=== PATIENT | female | born 1995 | race African-American/Black ===

== ENCOUNTER 2018-04-11 19:35 | Inpatient (IN) ==
[~2018-04-11 19:35] MED LIST: Diphtheria/Tetanus/Pertussis Vaccine Inj 0.5 ML Syringe IM ONE; Measles/Mumps/Rubella Vaccine Inj 0.5 ML Vial SQ ONE
[2018-04-11] MEDS ORDERED: Sod Chloride 0.9% Inj 1,000 ML IV.CONT PRN (19:50)
[2018-04-11] MEDS ORDERED: Sodium Chlor 0.9% Inj 500 ML IV.SIG PRN (19:50)
[2018-04-11] MEDS ORDERED: fentaNYL Citrate Inj 100 MCG/2 ML Ampul IV.PUSH PRN ×2 (19:50)
[2018-04-11] MEDS ORDERED: Naloxone Inj 0.4 MG/ML Vial IV.PUSH PRN ×2 (19:50→20:53)
[2018-04-11] MEDS ORDERED: Oxytocin 30 Units/500ml Premix 30 UNITS/500 ML BAG IV.SIG ONE (19:50)
[2018-04-11] MEDS ORDERED: Citric Acid/Sodium Citrate Liq 30 ML UDC PO SCH (20:00)
[2018-04-11] MEDS ORDERED: Oxytocin 30 Units/500ml Premix 30 UNITS/500 ML BAG ONE (20:07)
--- NOTE | 2018-04-11 20:46 | P.HPOB ---
History of Present Illness Primary Care Physician: NOT REQUIRED Chief Complaint: labor History of Present Illness: 22 yo presented to the ED for evaluation of labor. Contractions started at 6PM 04/11/18. Patient is from [place], [place] and moved to [place] 1 month ago. She did not have care here. She reports that she did have care in [place]. Her due date was April 26. She denies any medical problems. She takes no medications at home. No problems with past pregnancies or current . PSH: No surgeries Social: Denies tobacco use, alcohol use, drug use Weeks Gestation:: 37 Para: 2 : 3 Total # of Miscarriage(s): 0 Total # of Abortions (Spontaneous & Elective): 0 - Inpatient Certification I certify that the inpatient services were ordered in accordance with Medicare regulations governing the order. This includes certification that hospital inpatient services are reasonable and necessary and in the case of services not specified as inpatient-only under 42 CFR 419.22(n), that they are appropriately provided as inpatient services in accordance to with the 2-midnight benchmark under 43 CFR 412.3(e) Estimated Total Length of Stay (Days): 3 Plans for Post Hospital Care: Home Review of Systems All other systems reviewed negative except as stated in HPI PMFSH - Tobacco History Smoking Status: Never smoker Medications and Allergies Allergies Allergy/AdvReac Type Severity Reaction Status Date / Time No Known Allergies Allergy Unverified 03/16/18 12:29 Exam Vital signs: Vital Signs 04/11/18 19:50 04/11/18 19:55 04/11/18 20:01 Pulse Rate 99 H 96 H 89 Respiratory Rate 20 Blood Pressure 114/90 04/11/18 20:05 04/11/18 20:15 Pulse Rate 100 H 88 Respiratory Rate Blood Pressure Intake & Output 04/11/18 04/11/18 04/12/18 06:59 18:59 06:59 Weight 61.689 kg Narrative: GENERAL: Well-nourished, well-developed patient. SKIN: Warm and dry. HEAD: Normocephalic and atraumatic. EYES: No scleral icterus. No injection or drainage. ENT: No nasal drainage noted. Mucous membranes pink. Airway patent. NECK: Supple, trachea midline. No JVD. CARDIOVASCULAR: Regular rate and rhythm without murmurs, gallops, or rubs. RESPIRATORY: Breath sounds equal bilaterally. No accessory muscle use. BREASTS: Bilateral exam showed no masses , no retractions, no nipple discharge. ABDOMEN/GI: Abdomen soft, non-tender, bowel sounds present, no rebound, no guarding Gravid to 37 weeks size GENITOURINARY: External Genitalia: intact and normal in appearance Cervix: midline Dilatation: 7 Effacement: 80 Station: -1 Presentation: vertex Membranes: intact Uterine Contractions: Q3min FHT's: Category: 1 Baseline: 130s Reactive: yes Variability: moderate Decels: none EXTREMITIES: No cyanosis or edema. BACK: Nontender without obvious deformity. No CVA tenderness. NEUROLOGICAL: Awake and alert. Motor and sensory grossly within normal limits. Five out of 5 muscle strength in all muscle groups. Normal speech. Results - Labs CBC & Chem 7: 04/11/18 19:50 Caprini VTE Risk Assessment Caprini VTE Risk Assessment: Moderate/High Risk (score >= 2) Caprini Risk Assessment Model: Point Value = 1 Point Value = 2 Point Value = 3 Point Value = 5 Age 41-60 Minor surgery BMI > 25 kg/m2 Swollen legs Varicose veins or History of unexplained or recurrent spontaneous Oral contraceptives or hormone replacement Sepsis (< 1 month) Serious lung disease, including pneumonia (< 1 month) Abnormal pulmonary function Acute myocardial infarction Congestive heart failure (< 1 month) History of inflammatory bowel disease Medical patient at bed rest Age 61-74 Arthroscopic surgery Major open surgery (> 45 min) Laparoscopic surgery (> 45 min) Malignancy Confined to bed (> 72 hours) Immobilizing plaster cast Central venous access Age >= 75 History of VTE Family history of VTE Factor V Leiden Prothrombin 10200A Lupus anticoagulant Anticardiolipin antibodies Elevated serum homocysteine Heparin-induced thrombocytopenia Other congenital or acquired thrombophilia Stroke (< 1 month) Elective arthroplasty Hip, pelvis, or leg fracture Acute spinal cord injury (< 1 month) Prophylaxis Regimen: Total Risk Factor Score Risk Level Prophylaxis Regimen 0-1 Low Early ambulation 2 Moderate Order ONE of the following: *Sequential Compression Device (SCD) *Heparin 5000 units SQ BID 3-4 Higher Order ONE of the following medications: *Heparin 5000 units SQ TID *Enoxaparin/Lovenox 40 mg SQ daily (WT < 150 kg, CrCl > 30 mL/min) *Enoxaparin/Lovenox 30 mg SQ daily (WT < 150 kg, CrCl > 10-29 mL/min) *Enoxaparin/Lovenox 30 mg SQ BID (WT < 150 kg, CrCl > 30 mL/min) AND/OR *Sequential Compression Device (SCD) 5 or more Highest Order ONE of the following medications: *Heparin 5000 units SQ TID (Preferred with Epidurals) *Enoxaparin/Lovenox 40 mg SQ daily (WT < 150 kg, CrCl > 30 mL/min) *Enoxaparin/Lovenox 30 mg SQ daily (WT < 150 kg, CrCl > 10-29 mL/min) *Enoxaparin/Lovenox 30 mg SQ BID (WT < 150 kg, CrCl > 30 mL/min) AND *Sequential Compression Device (SCD) Assessment and Plan - Attending Attestation The exam, history, and the medical decision-making described in the above note were completed with the assistance of the resident physician. I reviewed and agree with the findings presented. I attest that I had a [id number] encounter with the patient on the same day, and personally performed and documented my assessment and findings in the medical record.
[2018-04-11] MEDS ORDERED: Benzocaine 20% Top Spray 60 ML Can TOPICAL PRN (20:53)
[2018-04-11] MEDS ORDERED: Witch Hazel 50%/Glyderin 12.5% 40 Pad Jar RECTAL PRN (20:53)
[2018-04-11] MEDS ORDERED: Zolpidem Tartrate 5 MG Tablet PO PRN (20:53)
[2018-04-11] MEDS ORDERED: Bisacodyl 10 MG Supp RECTAL PRN (20:53)
--- NOTE | 2018-04-11 20:53 | P.OBDELI ---
Weeks Gestation: 37 Artificial Rupture of Membrane: Yes Artificial ROM Date: 04/11/18 Artificial ROM Time: 20:11 Anesthesia: None Episiotomy: none Vaginal Delivery: Normal Presentation: Occiput posterior Nuchal Cord: None Delayed Cord Clamping (45 sec): Yes Placenta: Spontaneous delivery Laceration: None Estimated blood loss (mL): 100 : Male Infant Infant Delivery Date: 04/11/18 Infant Delivery Time: 20:36 Weight: 2.805 kg score (1 min): 8 score (5 min): 9 Attestation Attestation: The exam, history, and the medical decision-making described in the above note were completed with the assistance of the resident physician. I reviewed and agree with the findings presented. I attest that I had a [id number] encounter with the patient on the same day, and personally performed and documented my assessment and findings in the medical record.
[2018-04-11] MEDS ORDERED: Oxytocin 30 Units/500ml Premix 30 UNITS/500 ML BAG IV.CONT SCH (21:00)
[2018-04-11 21:04] LABS: Baso % (Auto) 0.4 % (0.0-2.0); Eos % (Auto) 0.3 % (0.0-4.0); Hematocrit 32.2 % (35.0-46.0); Hemoglobin 10.2 gm/dL (11.6-15.3); Lymph # (Auto) 0.9 th/mm3 (1.0-4.8); Lymph % (Auto) 12.8 % (9.0-44.0); Mean Corpuscular HGB Conc 31.7 % (32.0-36.0); Mean Corpuscular Hemoglobin 23.4 pg (27.0-34.0); Mean Corpuscular Volume 73.8 fL (80.0-100.0); Mean Platelet Volume 7.5 fL (7.0-11.0); Mono # (Auto) 0.5 th/mm3 (0.0-0.9); Mono % (Auto) 6.2 % (0.0-8.0); Neut # (Auto) 5.9 th/mm3 (1.8-7.7); Neut % (Auto) 80.3 % (16.0-70.0); Platelet Count 269 th/mm3 (150-450); Red Blood Count 4.36 mil/mm3 (4.00-5.30); Red Cell Distribution Width 14.4 % (11.6-17.2); White Blood Count 7.3 th/mm3 (4.0-11.0)
[2018-04-11] MEDS ORDERED: Acetaminophen 325 MG Tablet ONE ×2 (21:04→21:05)
[2018-04-11] MEDS: Acetaminophen 325 MG Tablet PO PRN (21:10)
[2018-04-11] MEDS: Ibuprofen 400 MG Tablet PO PRN (21:10)
--- NOTE | 2018-04-11 21:12 | ED ---
History of Present Illness Primary Care Physician: NOT REQUIRED Chief Complaint: labor History of Present Illness: 22 yo presented to the ED for evaluation of labor. Contractions started at 6PM 04/11/18. Patient is from [place], [place] and moved to [place] 1 month ago. She did not have care here. She reports that she did have care in [place]. Her due date was April 26. She denies any medical problems. She takes no medications at home. No problems with past pregnancies or current . PSH: No surgeries Social: Denies tobacco use, alcohol use, drug use Weeks Gestation:: 37 Para: 2 : 3 Total # of Miscarriage(s): 0 Total # of Abortions (Spontaneous & Elective): 0 - Inpatient Certification I certify that the inpatient services were ordered in accordance with Medicare regulations governing the order. This includes certification that hospital inpatient services are reasonable and necessary and in the case of services not specified as inpatient-only under 42 CFR 419.22(n), that they are appropriately provided as inpatient services in accordance to with the 2-midnight benchmark under 43 CFR 412.3(e) Estimated Total Length of Stay (Days): 3 Plans for Post Hospital Care: Home Review of Systems All other systems reviewed negative except as stated in HPI PMFSH - Tobacco History Smoking Status: Never smoker Medications and Allergies Allergies Allergy/AdvReac Type Severity Reaction Status Date / Time No Known Allergies Allergy Unverified 03/16/18 12:29 Exam Vital signs: Vital Signs 04/11/18 19:50 04/11/18 19:55 04/11/18 20:01 Pulse Rate 99 H 96 H 89 Respiratory Rate 20 Blood Pressure 114/90 04/11/18 20:05 04/11/18 20:15 04/11/18 20:45 Pulse Rate 100 H 88 91 H Respiratory Rate 19 Blood Pressure 04/11/18 20:50 Pulse Rate 130 H Respiratory Rate Blood Pressure 122/89 Intake & Output 04/11/18 04/11/18 04/12/18 06:59 18:59 06:59 Weight 61.689 kg Narrative: GENERAL: Well-nourished, well-developed patient. SKIN: Warm and dry. HEAD: Normocephalic and atraumatic. EYES: No scleral icterus. No injection or drainage. ENT: No nasal drainage noted. Mucous membranes pink. Airway patent. NECK: Supple, trachea midline. No JVD. CARDIOVASCULAR: Regular rate and rhythm without murmurs, gallops, or rubs. RESPIRATORY: Breath sounds equal bilaterally. No accessory muscle use. BREASTS: Bilateral exam showed no masses , no retractions, no nipple discharge. ABDOMEN/GI: Abdomen soft, non-tender, bowel sounds present, no rebound, no guarding Gravid to 37 weeks size GENITOURINARY: External Genitalia: intact and normal in appearance Cervix: midline Dilatation: 7 Effacement: 80 Station: -1 Presentation: vertex Membranes: intact Uterine Contractions: Q3min FHT's: Category: 1 Baseline: 130s Reactive: yes Variability: moderate Decels: none EXTREMITIES: No cyanosis or edema. BACK: Nontender without obvious deformity. No CVA tenderness. NEUROLOGICAL: Awake and alert. Motor and sensory grossly within normal limits. Five out of 5 muscle strength in all muscle groups. Normal speech. Results - Labs CBC & Chem 7: 04/11/18 19:50 Assessment and Plan - Attending Attestation The exam, history, and the medical decision-making described in the above note were completed with the assistance of the resident physician. I reviewed and agree with the findings presented. I attest that I had a [id number] encounter with the patient on the same day, and personally performed and documented my assessment and findings in the medical record. Discharge Plan - Discharge Order Discharge Orders: Discharge Order (Routine); Ordered 04/13/18 Ordered By: Remy Keller - Physicians Team Primary Care Provider: NOT REQUIRED, Attending Provider: Husam Bach
[2018-04-11 22:23] LABS: Hepatitis A IgM Antibody Nonreactive (Nonreactive)
[2018-04-11 22:26] LABS: Hepatitits B Surface Antigen Nonreactive (Nonreactive)
[2018-04-11 23:28] LABS: Amphetamine Screen,Urine Neg (Neg); Barbiturate Screen,Urine Neg (Neg); Cannabinoid Screen,Urine Neg (Neg); Cocaine Screen,Urine Neg (Neg)
[2018-04-11 23:32] LABS: Opiate Screen,Urine Neg (Neg)
[2018-04-12] MEDS: Ibuprofen 400 MG Tablet PO PRN ×3 (04:48→20:36)
[2018-04-12] MEDS: Acetaminophen 325 MG Tablet PO PRN ×5 (04:49→20:37)
--- NOTE | 2018-04-12 07:16 | P.PNOB ---
Subjective Post day: 1 Interval history: Patient is a 22-year-old G 3 p 3 delivered at 37 weeks and 6 days. Patient is day 1 after . Patient's pain is well-controlled. Patient reports eating and drinking without any nausea or vomiting. Patient reports minimal bleeding. Patient has passed gas but no bowel movements. Patient is walking without lower extremity pain or shortness of breath. Patient reports desire for contraception but unsure yet and bottle feeding. Objective Vital Signs/I&O: Vital Signs 04/11/18 19:50 04/11/18 19:55 04/11/18 20:01 Temperature Pulse Rate 99 H 96 H 89 Respiratory Rate 20 Blood Pressure 114/90 04/11/18 20:05 04/11/18 20:10 04/11/18 20:15 Temperature Pulse Rate 100 H 82 88 Respiratory Rate Blood Pressure 04/11/18 20:45 04/11/18 20:50 04/11/18 21:00 Temperature Pulse Rate 91 H 130 H 88 Respiratory Rate 19 18 Blood Pressure 122/89 124/61 04/11/18 21:07 04/11/18 21:15 04/11/18 21:30 Temperature 98.9 F Pulse Rate 89 76 Respiratory Rate 16 17 Blood Pressure 123/73 122/65 04/11/18 21:46 04/11/18 21:52 04/11/18 22:00 Temperature Pulse Rate 80 80 Respiratory Rate 18 Blood Pressure 97/76 L 118/86 04/11/18 23:20 Temperature 98.7 F Pulse Rate 70 Respiratory Rate 18 Blood Pressure 117/68 Intake & Output 04/11/18 04/12/18 04/12/18 18:59 06:59 18:59 Intake Total 700 / 700 Balance 700 / 700 Weight 61.689 kg Intake: IV 700 / 700 LR 1000 mL Inj 1,000 ML @ 125 200 / 200 mls/hr IV.CONT .Q8H PEDRO Rx#: [id number] Pitocin 30 Units/NS 500 ml 500 / 500 Premix 30 units In 500 ml @ 999 mls/hr IV.SIG BOLUS ONE Rx#: [id number] Result Diagrams: 04/11/18 19:50 Objective Remarks: GENERAL: Well-nourished, well-developed patient. CARDIOVASCULAR: Regular rate and rhythm without murmurs, gallops, or rubs. RESPIRATORY: Breath sounds equal bilaterally. No accessory muscle use. ABDOMEN/GI: Abdomen soft, some tenderness lower abdomen. Fundus: Firm, non-tender at umbilicus. GENITOURINARY: Light to moderate bleeding. EXTREMITIES: No cyanosis or edema, non-tender, without signs of DVT. Medications and IVs: Active Medications Acetaminophen (Tylenol) 650 mg PO Q4H PRN PRN Reason: PAIN SCALE 1 TO 2 Last Admin: 04/12/18 04:49 Dose: 650 mg Al Hydroxide/Mg Hydroxide (Milk Of Magnesia Liq) 30 ml PO Q12H PRN PRN Reason: Mild Constipation Benzocaine (Americaine 20% Top [place]) 1 spray TOPICAL Q4H PRN PRN Reason: For Perineum Discomfort Bisacodyl (Dulcolax Supp) 10 mg RECTAL DAILY PRN PRN Reason: SEVERE CONSITIPATION Ibuprofen (Motrin) 800 mg PO Q8H PRN PRN Reason: For cramping Last Admin: 04/12/18 04:48 Dose: 800 mg Lactulose (Lactulose Liq) 30 ml PO DAILY PRN PRN Reason: SEVERE CONSITIPATION Naloxone HCl (Narcan Inj) 0.1 mg IV.PUSH Q2M PRN PRN Reason: for opiate reversal Ondansetron HCl (Zofran Odt) 4 mg PO Q6H PRN PRN Reason: NAUSEA OR VOMITING Senna/Docusate Sodium (Shaniqua-Colace) 1 tab PO BID [facility] Sennosides (Senokot) 17.2 mg PO Q12H PRN PRN Reason: Moderate Constipation Sodium Chloride (Ns Flush) 2 ml IV.FLUSH BID [facility] Last Admin: 04/11/18 21:39 Dose: Not Given Sodium Chloride (Ns Flush) 2 ml IV.FLUSH PRN PRN PRN Reason: FLUSH AFTER USING IV ACCESS Witch Cheryl/Glycerin (Tucks Pads) 1 applicatio RECTAL QID PRN PRN Reason: HEMORRHOIDS Zolpidem Tartrate (Ambien) 5 mg PO HS PRN PRN Reason: SLEEP Assessment and Plan - Diagnosis (1) Vaginal delivery Code(s): O80 - Encounter for full-term uncomplicated delivery Status: Acute Plan: Patient is a 22-year-old G 3 p 3 delivered at 37 weeks and 6 days. Patient is day 1 after . Patient was counseled to do 6 weeks of pelvic rest. Patient was counseled to follow up in 6 weeks. Patient requested follow- up and contraception. --AF VSS --Continue routine care --Motrin and Tylenol when necessary for pain --Encourage OOB --Pelvic rest for 6 weeks will need follow-up appointment at that time. --Contraception: unsure will discuss tomorrow --Anticipate discharge tomorrow
[2018-04-12] MEDS: Senna/Docusate Sodium 8.6/50 MG Tablet PO SCH ×2 (08:37→20:36)
[2018-04-12 20:10] VITALS: RESP 18
[2018-04-13] MEDS: Ibuprofen 400 MG Tablet PO PRN ×2 (05:12→13:40)
[2018-04-13] MEDS: Acetaminophen 325 MG Tablet PO PRN ×2 (05:12→13:41)
[2018-04-13 07:58] VITALS: BP 130/73; PULSE 67; TEMP 98
--- NOTE | 2018-04-13 08:02 | P.PNOB ---
Subjective Interval history: Patient is a 22-year-old delivered at 37 weeks and 6 days. Patient is day 2 after . Patient's pain is well-controlled. Patient reports eating and drinking without any nausea or vomiting. Patient reports minimal bleeding. Patient has passed gas and bowel movements. Patient is walking without lower extremity pain or shortness of breath. Patient reports desire for contraception. Objective Vital Signs/I&O: Vital Signs 04/12/18 12:03 04/12/18 20:00 04/13/18 07:58 Temperature 99.6 F 98.1 F 98.0 F Pulse Rate 102 H 62 67 Respiratory Rate 16 18 18 Blood Pressure 121/83 113/57 L 130/73 Result Diagrams: 04/11/18 19:50 Objective Remarks: GENERAL: Well-nourished, well-developed patient. CARDIOVASCULAR: Regular rate and rhythm without murmurs, gallops, or rubs. RESPIRATORY: Breath sounds equal bilaterally. No accessory muscle use. ABDOMEN/GI: Abdomen soft, non-tender. Fundus: Firm, non-tender at umbilicus. GENITOURINARY: Light to moderate bleeding. EXTREMITIES: No cyanosis or edema, non-tender, without signs of DVT. Medications and IVs: Active Medications Acetaminophen (Tylenol) 650 mg PO Q4H PRN PRN Reason: PAIN SCALE 1 TO 2 Last Admin: 04/13/18 05:12 Dose: 650 mg Al Hydroxide/Mg Hydroxide (Milk Of Magnesia Liq) 30 ml PO Q12H PRN PRN Reason: Mild Constipation Benzocaine (Americaine 20% Top [place]) 1 spray TOPICAL Q4H PRN PRN Reason: For Perineum Discomfort Last Admin: 04/12/18 08:36 Dose: 1 spray Bisacodyl (Dulcolax Supp) 10 mg RECTAL DAILY PRN PRN Reason: SEVERE CONSITIPATION Ibuprofen (Motrin) 800 mg PO Q8H PRN PRN Reason: For cramping Last Admin: 04/13/18 05:12 Dose: 800 mg Lactulose (Lactulose Liq) 30 ml PO DAILY PRN PRN Reason: SEVERE CONSITIPATION Medroxyprogesterone Acetate (Depo-Provera Inj) 150 mg IM ONCE ONE Stop: 04/13/18 08:01 Naloxone HCl (Narcan Inj) 0.1 mg IV.PUSH Q2M PRN PRN Reason: for opiate reversal Ondansetron HCl (Zofran Odt) 4 mg PO Q6H PRN PRN Reason: NAUSEA OR VOMITING Senna/Docusate Sodium (Shaniqua-Colace) 1 tab PO BID [facility] Last Admin: 04/12/18 20:36 Dose: 1 tab Sennosides (Senokot) 17.2 mg PO Q12H PRN PRN Reason: Moderate Constipation Sodium Chloride (Ns Flush) 2 ml IV.FLUSH BID [facility] Last Admin: 04/12/18 20:36 Dose: Not Given Sodium Chloride (Ns Flush) 2 ml IV.FLUSH PRN PRN PRN Reason: FLUSH AFTER USING IV ACCESS Witch Cheryl/Glycerin (Tucks Pads) 1 applicatio RECTAL QID PRN PRN Reason: HEMORRHOIDS Last Admin: 04/12/18 08:37 Dose: 1 applicatio Zolpidem Tartrate (Ambien) 5 mg PO HS PRN PRN Reason: SLEEP Assessment and Plan - Diagnosis (1) Vaginal delivery Code(s): O80 - Encounter for full-term uncomplicated delivery Status: Acute Plan: Patient is a 22-year-old G 3 p 3 delivered at 37 weeks and 6 days. Patient is day 2 after . Patient was counseled to do 6 weeks of pelvic rest. Patient was counseled to follow up in 6 weeks. Patient requested follow- up and contraception. --AF VSS --Continue routine care --Motrin and Tylenol when necessary for pain --Encourage OOB --Pelvic rest for 6 weeks will need follow-up appointment at that time. --Contraception: Depo-Provera shot --Anticipate discharge today
[2018-04-13] MEDS ORDERED: medroxyPROGESTERone Acetate Inj 150 MG/ML Syringe IM ONE (09:00)
[2018-04-13] MEDS: Senna/Docusate Sodium 8.6/50 MG Tablet PO SCH (09:03)
== END 2018-04-13 18:28 | disposition home or self-care (01) ==
LOC: HOBED 19:35 → H1EA 19:40 → H2E 19:42 → H1EA 22:43
PROVIDERS: ADMIT Obstetrics & Gynecology; ATTEND Obstetrics & Gynecology